=== PATIENT | male | born 1970 | race Caucasian/White ===

== ENCOUNTER → 2017-04-27 | Outpatient (CLI) | payer BC ==
[2017-04-27 09:10] LABS: CH 31.8; CHCM 35.6; HCT 46.9 % (39.0-53.0); HDW 2.63; HGB 16.4 gm/dL (13.0-17.5); MCH 31.3 pg (25.0-35.0); MCV 89.5 fL (80.0-100.0); Mean Platelet Volume 7.1; RBC 5.24 m/uL (4.30-5.90); RDW 12.4 % (11.5-15.5); WBC 6.5 k/uL (3.8-10.6)
[2017-04-27 09:22] LABS: ALT 81 U/L (21-72); AST 35 U/L (17-59); Alkaline Phosphatase 74 U/L (38-126); Anion Gap 9 mmol/L; Blood Urea Nitrogen 22 mg/dL (9-20); Calcium 9.3 mg/dL (8.4-10.2); Carbon Dioxide 25 mmol/L (22-30); Chloride 107 mmol/L (98-107); Cholesterol 150 mg/dL (<200); Glucose 86 mg/dL (74-99); HDL Cholesterol 45 mg/dL (40-60); Non-African American GFR(MDRD) >60 (>60 ml/min/1.73 sqM); Potassium 4.4 mmol/L (3.5-5.1); Sodium 141 mmol/L (137-145); Total Protein 7.4 g/dL (6.3-8.2); Triglycerides 173 mg/dL (<150)
--- NOTE | 2017-04-27 09:26 | XR ---
EXAMINATION TYPE: XR chest 2V DATE OF EXAM: 04/27/2017 HISTORY: Z00.00 physical. REFERENCE: Previous study dated 03/31/2016. FINDINGS: The lungs are clear. Pleural space are clear. The heart is not enlarged. IMPRESSION: NORMAL CHEST.
== END | disposition home or self-care (01) ==
LOC: LABWHC1 08:24
PROVIDERS: ATTEND Internal Medicine
DX: Z00.00 Encounter for general adult medical examination without abnormal findings (principal)
CPT/HCPCS: 36415; 71020; 80053; 80061; 82272; 84439; 84443; 85027

== ENCOUNTER → 2017-10-07 | Outpatient (CLI) | payer BC ==
[2017-10-07 12:36] LABS: ALT 91 U/L (21-72); AST 47 U/L (17-59); Albumin 4.7 g/dL (3.5-5.0); Alkaline Phosphatase 74 U/L (38-126); Anion Gap 10 mmol/L; Blood Urea Nitrogen 22 mg/dL (9-20); Calcium 10.2 mg/dL (8.4-10.2); Carbon Dioxide 29 mmol/L (22-30); Chloride 101 mmol/L (98-107); Glucose 102 mg/dL (74-99); Potassium 4.7 mmol/L (3.5-5.1); Sodium 140 mmol/L (137-145); Total Bilirubin 0.7 mg/dL (0.2-1.3); Total Protein 7.5 g/dL (6.3-8.2)
[2017-10-07 12:53] LABS: HCT 49.7 % (39.0-53.0); HGB 16.6 gm/dL (13.0-17.5); MCH 31.5 pg (25.0-35.0); MCHC 33.5 g/dL (31.0-37.0); Mean Platelet Volume 7.7; Platelet Count 218 k/uL (150-450); RBC 5.29 m/uL (4.30-5.90); RDW 13.6 % (11.5-15.5); WBC 7.8 k/uL (3.8-10.6)
--- NOTE | 2017-10-07 13:17 | XR ---
EXAMINATION TYPE: XR chest 2V DATE OF EXAM: 10/07/2017 COMPARISON: 04/27/2017 INDICATION: Bronchitis TECHNIQUE: Frontal and lateral views of the chest are obtained. FINDINGS: The heart size is normal. The pulmonary vasculature is normal. There may be some minimal plate atelectasis at the left costophrenic angle. Lungs are otherwise clear . Suspected calcified granuloma inferior left hilar region is stable. IMPRESSION: 1. Minimal plate atelectasis left costophrenic angle.
== END | disposition home or self-care (01) ==
LOC: LABWHC1 11:55
PROVIDERS: ATTEND Internal Medicine
DX: J98.11 Atelectasis (principal)
CPT/HCPCS: 36415; 71046; 80053; 85027

== ENCOUNTER → 2018-05-06 | Outpatient (CLI) | payer BC ==
[2018-05-06 12:18] LABS: HGB 15.9 gm/dL (13.0-17.5); MCH 30.3 pg (25.0-35.0); MCHC 33.2 g/dL (31.0-37.0); MCV 91.3 fL (80.0-100.0); Mean Platelet Volume 6.8; Platelet Count 225 k/uL (150-450); RBC 5.25 m/uL (4.30-5.90); RDW 12.8 % (11.5-15.5); WBC 7.3 k/uL (3.8-10.6)
[2018-05-06 12:34] LABS: ALT 63 U/L (21-72); AST 39 U/L (17-59); Albumin 4.5 g/dL (3.5-5.0); Alkaline Phosphatase 86 U/L (38-126); Anion Gap 9 mmol/L; Blood Urea Nitrogen 20 mg/dL (9-20); Calcium 9.8 mg/dL (8.4-10.2); Carbon Dioxide 27 mmol/L (22-30); Chloride 105 mmol/L (98-107); Cholesterol 160 mg/dL (<200); Glucose 94 mg/dL (74-99); HDL Cholesterol 38 mg/dL (40-60); LDL Cholesterol,Calculated 94 mg/dL (0-99); Potassium 4.9 mmol/L (3.5-5.1); Sodium 141 mmol/L (137-145); Total Bilirubin 0.8 mg/dL (0.2-1.3); Total Protein 7.4 g/dL (6.3-8.2); Triglycerides 140 mg/dL (<150)
[2018-05-06 12:52] LABS: T4, Free (Free Thyroxine) 0.94 ng/dL (0.78-2.19)
[2018-05-06 13:06] LABS: Prostate Specific Antigen 1.23 ng/mL (0.00-4.00)
--- NOTE | 2018-05-06 14:42 | XR ---
EXAMINATION TYPE: XR chest 2V DATE OF EXAM: 05/06/2018 COMPARISON: 10/07/2017 HISTORY: 48-year-old male general adult medical exam, cough for 2 weeks TECHNIQUE: Frontal and lateral views FINDINGS: Heart normal size. Aorta and pulmonary vasculature within normal limits. Calcified left hilar lymph n odes suggest prior granulomatous disease. Unchanged from prior. Strandy atelectasis at the left base. No consolidation or pleural effusion. IMPRESSION: Calcified left hilar lymph nodes compatible with prior granulomatous disease. No acute process seen.
== END | disposition home or self-care (01) ==
LOC: LABWHC1 11:27
PROVIDERS: ATTEND Internal Medicine
DX: I89.8 Other specified noninfective disorders of lymphatic vessels and lymph nodes (principal); Z00.00 Encounter for general adult medical examination without abnormal findings; N40.0 Benign prostatic hyperplasia without lower urinary tract symptoms; K21.0 Gastro-esophageal reflux disease with esophagitis; E78.2 Mixed hyperlipidemia
CPT/HCPCS: 36415; 71046; 80053; 80061; 82272; 84153; 84439; 84443; 85027

== ENCOUNTER → 2020-06-15 | Outpatient (CLI) | payer BC ==
[2020-06-15 08:46] LABS: Basophils # (A) 0.1 k/uL (0-0.2); Basophils % (A) 1 %; Eosinophils # (A) 0.2 k/uL (0-0.7); Eosinophils % (A) 3 %; HCT 50.4 % (39.0-53.0); HGB 16.9 gm/dL (13.0-17.5); Lymphocytes # (A) 1.4 k/uL (1.0-4.8); Lymphocytes % (A) 22 %; MCH 30.9 pg (25.0-35.0); MCHC 33.5 g/dL (31.0-37.0); MCV 92.2 fL (80.0-100.0); Mean Platelet Volume 7.6; Monocytes # (A) 0.4 k/uL (0-1.0); Monocytes % (A) 6 %; Neutrophils # (A) 4.1 k/uL (1.3-7.7); Neutrophils % (A) 66 %; Platelet Count 204 k/uL (150-450); RBC 5.46 m/uL (4.30-5.90); RDW 12.5 % (11.5-15.5); WBC 6.2 k/uL (3.8-10.6)
[2020-06-15 16:47] LABS: African American GFR (CKD) 91.5 (60.0-200.0); Albumin 4.8 g/dL (3.80-4.90); Albumin/Globulin Ratio 2.09 (1.60-3.17); Anion Gap 8.9 mmol/L (4.00-12.00); Calcium 9.8 mg/dL (8.7-10.3); Carbon Dioxide 26.1 mmol/L (21.6-31.8); Chol/HDL Ratio 3.85; Globulin 2.3 g/dL (1.6-3.3); LDL Cholesterol,Calculated 86.2 mg/dL (0.0-131.0); Potassium 4.3 mmol/L (3.5-5.5); Total Protein 7.1 g/dL (6.2-8.2); VLDL Calculation 30.8 mg/dL (5.00-40.00)
[2020-06-15 16:55] LABS: Prostate Specific Antigen 0.6 ng/mL (0.0-2.5)
[2020-06-15 18:00] LABS: Hemoglobin A1C 5.1 % (4.0-6.0)
== END | disposition home or self-care (01) ==
LOC: LABWHC1 08:27
PROVIDERS: ATTEND Family Medicine
DX: Z00.00 Encounter for general adult medical examination without abnormal findings (principal); Z12.5 Encounter for screening for malignant neoplasm of prostate; Z11.59 Encounter for screening for other viral diseases
CPT/HCPCS: 36415; 80053; 80061; 83036; 84153; 84443; 85025; 86803

== ENCOUNTER → 2020-07-16 | Outpatient (CLI) | payer BC ==
--- NOTE | 2020-07-16 22:28 | MR ---
EXAMINATION TYPE: MR iac wo/w con DATE OF EXAM: 07/16/2020 COMPARISON: None HISTORY: PT'S DOCTOR SAW SOMETHING IN HIS EAR DURING A PHYSICAL EXAMINATION/ 12ML GADAVIST GIVEN/ NO PREV CONTRAST: Performed utilizing 12 mL intravenous Gadavist gadolinium contrast. TECHNIQUE: Multiplanar, multiecho imaging on a 3.0 Ann magnet is performed through the brain. Atte ntion is paid to the internal auditory canals with thin section imaging. Postcontrast imaging is per formed through the internal auditory canals. FINDINGS:Craniovertebral junction is normal. The pituitary is normal. Diffusion-weighted imaging is performed. No suspicious hyperintensity is present to suggest an acute intracranial infarct or acute ischemic area. Signal within the brain is normal. No suspicious T2 or inversion recovery weighted sequence hyperinte nsities are evident.. Thin section imaging is performed through the internal auditory canals and cerebellar pontine angles. No cerebellar pontine angle masses are evident. The internal auditory canals appear normal without expansion or erosion. Middle ears appear clear. Cochlea and semicircular canals appear unremarkable Postcontrast imaging was performed. No suspicious enhancement is evident within the internal audito ry canals or the included portions of the brain. CT may be of greater sensitivity for findings within the external auditory canals and middle ears if this would be of benefit. IMPRESSIONS: 1. Normal internal auditory canals.
== END | disposition home or self-care (01) ==
LOC: RADMRIMAIN 18:48
PROVIDERS: ATTEND Family Medicine
DX: H61.899 Other specified disorders of external ear, unspecified ear (principal)
CPT/HCPCS: 70553; A9585

== ENCOUNTER → 2021-07-25 | Outpatient (CLI) | payer BC ==
--- NOTE | 2021-07-25 14:29 | P.STRESS ---
- Stress Test Note Stress Test Results/Findings: Exam Performed: stress echo exercise Exam Date: 07/25/21 Reason for Exam: cp Height: 6 ft 2 in Weight: 265 kg Protocol: stress echo Stage: iv Duration of Exercise: 12 Resting Heart Rate: 62 Resting Blood Pressure: 113/64 Maximum Achieved Heart Rate: 153 Maximum Achieved Blood Pressure: 196/80 85% PMHR: 145 100% PMHR: 171 METS: 11.1 Technologist Comment: Stress Test Results/Findings: Baseline heart rate 62 beats a minute, Baseline blood pressure 113/64 mmHg Baseline twelve-lead EKG shows sinus rhythm with T-wave inversions in the lateral precordial leads and in the high lateral leads Patient exercised on a Malik protocol for 12 minutes achieving a peak heart rate of 153 beats a minute Normal blood pressure response No symptoms There was no ECG evidence for ischemia Normalization of T waves are noted with exercise This persisted into recovery Baseline 2-D echo images showed normal LV size and systolic function without segmental wall motion abnormalities At peak exercise there was excellent augmentation of overall LV contractility without development of any wall motion abnormalities @Recovery regional and global LV systolic function within normal Impression excellent excess capacity No ECG or echocardiographic evidence for ischemia Abnormal ECG at baseline with T-wave inversions in the lateral precordial leads Please note calcification of the right aortic valve/cusp noted without evidence for aortic stenosis
== END | disposition home or self-care (01) ==
LOC: RADNMMAIN 09:30
PROVIDERS: ATTEND Family Medicine
DX: R07.9 Chest pain, unspecified (principal); R94.31 Abnormal electrocardiogram [ECG] [EKG]
CPT/HCPCS: 93351

== ENCOUNTER → 2022-04-09 | Outpatient (CLI) | payer BC ==
--- NOTE | 2022-04-09 08:32 | US ---
EXAMINATION TYPE: US groin RT DATE OF EXAM: 04/09/2022 COMPARISON: NONE CLINICAL HISTORY: INTRA-ABD AND PELVIC SWELLING. Right groin and epigastric pain. Right groin and umbilicus scanned. No evidence of hernia or other abnormality. Scanned with and witho ut valsalva. Images obtained show no suspicious mass or adenopathy right groin region. No obvious hernia with juliana austin imaging. The umbilical region hernia defect on dynamic imaging. IMPRESSION: As above.
== END | disposition home or self-care (01) ==
LOC: RADUSWWP 07:37
PROVIDERS: ATTEND Family Medicine
DX: R19.09 Other intra-abdominal and pelvic swelling, mass and lump (principal)

== ENCOUNTER → 2024-08-08 | Outpatient (CLI) | payer BC ==
[2024-08-08 14:53] LABS: Basophils # (A) 0.04 X 10*3/uL (0.00-0.10); Basophils % (A) 0.6 %; Eosinophils # (A) 0.15 X 10*3/uL (0.04-0.35); Eosinophils % (A) 2.3 %; HCT 43.1 % (39.6-50.0); HGB 14.8 g/dL (13.0-17.0); Lymphocytes # (A) 1.24 X 10*3/uL (0.90-5.00); Lymphocytes % (A) 18.8 %; MCHC 34.3 g/dL (32.0-37.0); MCV 90.4 FL (80.0-97.0); Monocytes # (A) 0.54 X 10*3/uL (0.20-1.00); Monocytes % (A) 8.2 %; NRBC Per 100 WBC 0 X 10*3/uL (0.00-0.01); Neutrophils % (A) 69.8 %; Platelet Count 231 X 10*3/uL (140-440); RBC 4.77 X 10*6/uL (4.40-5.60); RDW 11.9 % (11.5-14.5); WBC 6.59 X 10*3/uL (4.50-10.00)
== END | disposition home or self-care (01) ==
LOC: LABPAT 10:24
PROVIDERS: ATTEND Surgery
DX: Z01.818 Encounter for other preprocedural examination (principal); K40.90 Unilateral inguinal hernia, without obstruction or gangrene, not specified as recurrent; R94.31 Abnormal electrocardiogram [ECG] [EKG]
CPT/HCPCS: 36415; 85025; 86850; 86900; 86901; 93005

== ENCOUNTER 2024-08-12 06:24 | Day surgery (SDC) | payer BC ==
[2024-08-08 16:03] VITALS: BMI 28.2
[~2024-08-12 06:24] MED LIST: SCOPOLAMINE 1 MG/72 HR PATCH TRANSDERM ONE
[2024-08-12] MEDS: IV FLUID CONTINUATION 1,000 ML IV ONE (06:47)
[2024-08-12] MEDS ORDERED: HYDROmorphone 0.5 MG/0.5 ML SYRINGE IVP PRN (07:00)
[2024-08-12] MEDS ORDERED: MIDAZOLAM 2 MG/2 ML VIAL IV PRN (07:00)
[2024-08-12] MEDS: ACETAMINOPHEN TAB 500 MG TAB PO PRN (07:16)
[2024-08-12] MEDS: LACTATED RINGERS 1,000 ML IV SCH (07:20)
[2024-08-12] MEDS: DEXAMETHASONE SOD PHOSPHATE 4 MG/ML 1 ML VIAL IV ONE (07:22)
[2024-08-12] MEDS: FAMOTIDINE 20 MG/2 ML VIAL IV STA (07:24)
[2024-08-12] MEDS: ONDANSETRON 4 MG/2 ML VIAL IVP ONE (07:25)
[2024-08-12] MEDS: HEPARIN SODIUM,PORCINE 5,000 UNIT/ML 1 ML VIAL SQ PRN (07:27)
[2024-08-12] MEDS: TAMSULOSIN 0.4 MG CAP.ER.24H PO STA (07:32)
[2024-08-12] MEDS ORDERED: GLYCOPYRROLATE 0.2 MG/ML 2 ML VIAL ONE (07:33)
[2024-08-12] MEDS ORDERED: HYDROmorphone (PF) 1 MG/ML ONE (07:33)
[2024-08-12] MEDS ORDERED: PROPOFOL 10 MG/ML 20 ML VIAL IV ONE (07:33)
[2024-08-12] MEDS ORDERED: fentaNYL (PF) 50 MCG/ML 2 ML AMP ONE (07:33)
[2024-08-12] MEDS ORDERED: MIDAZOLAM 2 MG/2 ML VIAL ONE (07:33)
[2024-08-12] MEDS ORDERED: SUCCINYLCHOLINE CHLORIDE 200 MG/10 ML VIAL IV ONE (07:33)
[2024-08-12] MEDS ORDERED: ROCURONIUM 10 MG/ML (5 ML VIAL) IV ONE (07:33)
[2024-08-12] MEDS ORDERED: KETOROLAC 15 MG/ML 1 ML VIAL ONE (07:33)
[2024-08-12] MEDS ORDERED: LIDOCAINE 1% INJ 10MG/ML (20 ML MDV) ONE (07:33)
[2024-08-12] MEDS ORDERED: NEOSTIGMINE 1 MG/ML 10 ML VIAL ONE (07:33)
--- NOTE | 2024-08-12 07:36 | P.GSHP ---
History of Present Illness H&P Date: 08/12/24 Chief Complaint: Right inguinal hernia 54-year-old male seen in the office recently. Patient with enlarging right inguinal hernia over the last 1 to 2 years. Mild soreness at times. Particularly with activities. No symptoms on the left. No history of previous repair. Past Medical History Additional Past Medical History / Comment(s): HCM History of Any Multi-Drug Resistant Organisms: None Reported Past Surgical History: Orthopedic Surgery Additional Past Surgical History / Comment(s): BILAT KNEE SCOPES. COLONOSCOPY X 3 Past Anesthesia/Blood Transfusion Reactions: No Reported Reaction Smoking Status: Never smoker - Past Family History Mother Family Medical History: Cancer Medications and Allergies Home Medications Medication Instructions Recorded Confirmed Type Metoprolol Succinate [Metoprolol 25 mg PO DAILY 08/08/24 08/12/24 History Succinate ER] Tirzepatide [Zepbound] 10 mg SQ TU 08/08/24 08/12/24 History Allergies Allergy/AdvReac Type Severity Reaction Status Date / Time No Known Allergies Allergy Verified 08/12/24 06:55 Surgical - Exam Vital Signs Temp Pulse Resp BP Pulse Ox 96.9 F L 63 18 130/76 97 08/12/24 06:53 08/12/24 06:53 08/12/24 06:53 08/12/24 06:53 08/12/24 06:53 Physical exam: General: Well-developed, well-nourished HEENT: Normocephalic, sclerae nonicteric Abdomen: Nontender, nondistended, reducible right inguinal hernia Extremities: No edema Neuro: Alert and oriented Assessment and Plan (1) Right inguinal hernia Narrative/Plan: 54-year-old male with symptomatic right inguinal hernia. Will proceed with laparoscopic da Hugh assisted repair right inguinal hernia with mesh, possible open, possible bilateral. Risks of bleeding, infection, recurrence, bladder and bowel injury, numbness, nerve injury, conversion to an open procedure were discussed with the patient. The patient understands and wishes to proceed. Current Visit: Yes Status: Acute Code(s): K40.90 - UNIL INGUINAL HERNIA, W/O OBST OR GANGR, NOT SPCF RECUR SNOMED Code(s): 761150038
[2024-08-12] MEDS: BUPIVACAINE (PF) 0.25% 30 ML VIAL SQ ONE ×2 (08:01)
[2024-08-12] MEDS: LACTATED RINGERS 1,000 ML IV ONE (09:26)
[2024-08-12 09:39] VITALS: TEMP 97.5
--- NOTE | 2024-08-12 09:46 | P.OP ---
Date of Procedure: 08/12/24 Procedure(s) Performed: PREOPERATIVE DIAGNOSIS: Right inguinal hernia POSTOPERATIVE DIAGNOSIS: Right indirect inguinal hernia with cord lipoma PROCEDURE: Laparoscopic da Hugh assisted repair right inguinal hernia with mesh, excision cord lipoma SURGEON: Dr. Mata ANESTHESIA: General OPERATIVE PROCEDURE DETAILS: Patient was placed in the operating table in the supine position. The patient was placed under general anesthesia. The abdomen was prepped and draped in usual sterile fashion. A small curvilinear supraumbilical incision was made. The fascia was retracted anteriorly with Ok forceps. The Veress needle was inserted. The saline drop test was normal. Insufflation took place to 15 mmHg. An 8 mm trocar was placed into the peritoneal cavity. 2 additional 8 mm trochars were placed in the right upper quadrant and left upper quadrant under visualization. The robotic arms were then brought in and docked into place. The fenestrated bipolar was used in the left arm and the laparoscopic eron was utilized in the right arm. A 30 8 mm scope was used in the up position. The peritoneal cavity was inspected. No hernia on the left was seen. The patient had an indirect hernia on the right- hand side. The peritoneum was incised in a horizontal fashion cephalad to the internal inguinal ring. Following that careful dissection of the preperitoneal space took place. This took place using both electrocautery, sharp dissection but primarily blunt dissection. Visualization of the pubic tubercle and Tayo's ligament took place medially. Full dissection took place laterally as well. The hernia sac was fully dissected. There was a cord lipoma exiting through the internal inguinal ring that was excised as well. This was later removed using an Endo Catch bag. Once we had adequate space the 25x07am Progrip mesh was advanced into the preperitoneal space and flattened out appropriately to cover all potential hernia sites. This was sutured to Tayo's ligament using a running 3-0 absorbable V-Loc suture that was also brought along the midline. The peritoneal defect was then closed using a absorbable 2-0 VLok suture. The hernia sac was incorporated into the peritoneal closure to help prevent future recurrence. The pneumoperitoneum was then evacuated. The skin of all 3 sites was closed using a 4-0 Monocryl stitch. Skin glue was then applied. TYPE OF MESH USED: ProGrip 15 x 10 cm LOCATION OF MESH: Preperitoneal FIXATION: Absorbable 3 oh V-Loc PREOPERATIVE DISCUSSION ON SMOKING CESSASTION: Yes PREOPERATIVE DISCUSSION ON MORBID OBESITY: Yes PREOPERATIVE DISCUSSION ON APPROPRIATE USE OF NARCOTIC USE: Yes PREOPERATIVE EDUCATION: Multi Modal, Smoking Cessation and Weight Loss with BMI over 35. DISPOSITION: Stable to recovery room
[2024-08-12 10:50] VITALS: RESP 16
[2024-08-12 11:38] VITALS: BP 113/68; PULSE 64
[2024-08-12] MEDS ORDERED: IBUPROFEN 600 MG TAB PO SCH (13:00)
[2024-08-12] MEDS ORDERED: ACETAMINOPHEN TAB 325 MG TAB PO SCH (16:00)
== END 2024-08-12 12:44 | disposition home or self-care (01) ==
LOC: OR 06:24
PROVIDERS: ATTEND Surgery
DX: K40.90 Unilateral inguinal hernia, without obstruction or gangrene, not specified as recurrent (principal); I42.2 Other hypertrophic cardiomyopathy; D17.6 Benign lipomatous neoplasm of spermatic cord; Z79.85 Long-term (current) use of injectable non-insulin antidiabetic drugs; Z79.899 Other long term (current) drug therapy
CPT/HCPCS: 49650; 55559; S2900